=== PATIENT | female | born 1990 | race Asian ===

== ENCOUNTER 2019-11-10 05:22 | Emergency (ER) | payer OTHER ==
[~2019-11-10] VITALS: Ht 160 cm; Wt 54.4 kg
[2019-11-10 05:24] VITALS: BP 124/62
--- NOTE | 2019-11-10 05:29 | NUR ---
PT AMBULATED TO BED 6
[2019-11-10] MEDS ORDERED: ACETAMINOPHEN 325 MG TAB PO ONE (05:30)
[2019-11-10] MEDS ORDERED: IBUPROFEN 400 MG TAB PO ONE (05:30)
--- NOTE | 2019-11-10 05:30 | NUR ---
29 Y/O FEMALE PRESENTS TO ED, C/O OF FEVER. PT STATES FEVER STARTED YESTERDAY, TEMP DURING TRIAGE WAS 103 ORAL. PT TOOK TYLENOL PRIOR TO COMING TO ED. PT C/O BODY ACHES AND THROAT PAIN, 6/10. PT STATES THROAT PAIN IS SHARP. PT DENIES ANY DIARRHEA. BS ACTIVE X4 QUADRANTS. C/O NONPRODUCTIVE COUGH. DIMINISHED LUNG SOUNDS, BILAT BASES. ERMD AWARE. WILL CONTINUE TO MONITOR.
--- NOTE | 2019-11-10 05:36 | NUR ---
DR MACIEL AT BEDSIDE.
[2019-11-10] MEDS ORDERED: NACL 0.9% 1,000 ML IV ONE (05:40)
--- NOTE | 2019-11-10 05:40 | NUR ---
STREP SWAB OBTAINED AND SENT TO LAB AT THIS TIME
--- NOTE | 2019-11-10 05:58 | NUR ---
PT TAKEN TO XRAY
[2019-11-10 06:11] LABS: HEMATOCRIT 42.3 % (36-48); HEMOGLOBIN 13.7 g/dL (12.0-16.0); MEAN CORPUSCULAR HEMOGLOBIN 30 pg (27-31); MEAN CORPUSCULAR HGB CONC 32 g/dL (33-37); MEAN CORPUSCULAR VOLUME 93.3 fL (80-94); RED BLOOD CELL COUNT(AUTO) 4.53 MIL/uL (4.20-5.40)
[2019-11-10 06:12] LABS: BASOPHILS # (AUTO) 0.1 K/uL (0.00-0.22); EOSINOPHILS % (AUTO) 0.3 % (0.0-4.0); LYMPHOCYTES # (AUTO) 1.1 K/uL (2.5-16.5); LYMPHOCYTES % (AUTO) 15.2 % (20.5-51.1); MONOCYTES # (AUTO) 0.8 K/uL (0.8-1.0); MONOCYTES % (AUTO) 12.1 % (1.7-9.3); NEUTROPHILS % (AUTO) 71.4 % (42.2-75.2); PLATELET COUNT (AUTO) 210 K/uL (140-450); RED CELL DISTRIBUTION WIDTH 12.7 % (11.6-13.7)
[2019-11-10 06:25] LABS: CARBON DIOXIDE 26.7 mmol/L (21-32); POTASSIUM 3.7 mmol/L (3.5-5.1)
[2019-11-10 06:54] VITALS: BP 120/77
--- NOTE | 2019-11-10 06:54 | NUR ---
PT DISCHARGED WITH PAPERWORK. EDUCATED PT REGARDING MEDICATIONS AND S/E. EDUCATED PT REGARDING D/C DIAGNOSIS AND INSTRUCTIONS. PT VERBALIZED UNDERSTANDING OF TEACHING. TOLD PT TO FOLLOW UP WITH PCP AND WHEN TO RETURN TO ED. PT AT STABLE CONDITION. ALL QUESTIONS ANSWERED.
== END 2019-11-10 06:54 | disposition home or self-care (01) ==
LOC: MED 05:22
DX: J10.1 Influenza due to other identified influenza virus with other respiratory manifestations (principal)
CPT/HCPCS: 36415; 71046; 80048; 81002; 81025; 85025; 87081; 87804; 99284; J7030